=== PATIENT | female | born 1980 | race Caucasian/White ===

== ENCOUNTER 2018-11-04 21:08 | Emergency (ER) | payer OTHER ==
[~2018-11-04] VITALS: Ht 175.3 cm; Wt 104.3 kg
[2018-11-04] MEDS ORDERED: TRIMETHOPRIM/SULFAMETHOXAZOLE 160-800 MG TAB PO ONE (22:45)
== END 2018-11-04 22:45 | disposition home or self-care (01) ==
LOC: FSED 21:08 → EDBD 21:08 → FSED 22:45
DX: M79.671 Pain in right foot (principal); L98.491 Non-pressure chronic ulcer of skin of other sites limited to breakdown of skin; L97.519 Non-pressure chronic ulcer of other part of right foot with unspecified severity; L97.419 Non-pressure chronic ulcer of right heel and midfoot with unspecified severity; I87.8 Other specified disorders of veins; M79.89 Other specified soft tissue disorders; R26.2 Difficulty in walking, not elsewhere classified
CPT/HCPCS: 99283